=== PATIENT | female | born 1960 | race Caucasian/White ===

== ENCOUNTER 2016-07-16 17:40 | Emergency (ER) | payer OTHER ==
[2016-07-16] MEDS ORDERED: HYDROmorphone HCL 1 MG/ML SYR ONE ×2 (17:57→19:55)
[2016-07-16] MEDS ORDERED: ONDANSETRON HCL 4 MG/2 ML VIAL ONE (18:41)
[2016-07-16] MEDS ORDERED: FENTANYL 250 MCG/5 ML VIAL ONE (18:42)
--- NOTE | 2016-07-16 19:16 | CT REPORT ---
HISTORY: Injury, fall, fracture COMPARISON: Radiographs from same day TECHNIQUE: CT of the left ankle has been performed without contrast. Axial images obtained with two dimensional reformats performed. 3D volume rendering performed by technologist on a separate work station. This examination was performed using automated exposure control, adjustment of mA or kV according to patient size, and/or use of iterative reconstruction technique. FINDINGS: Mildly comminuted fractures of the posterior malleolus, with predominant coronal fracture plane. Up t o 3 mm dorsal displacement of the dominant fracture fragment. Mild impaction of the dorsal articular surface, approximately 2 mm. Oblique distal fibular fracture, mildly displaced. Ankle mortise is intact. No dislocation. Circumferential soft tissue swelling. IMPRESSION: 1. Mildly comminuted and displaced posterior malleolar fracture. 2. Oblique distal fibular fracture. Final Electronic Signature: This report was electronically signed by Jorge Parks MD on 07/16/2016 7:14 PM. lyndon /
[2016-07-16] MEDS ORDERED: HYDROcodone/APAP PREPAC 5/325 1 TAB TABLET PO ONE (19:43)
[2016-07-16] MEDS ORDERED: ONDANSETRON ODT PREPAC 4 MG TAB.RAPDIS PO ONE (19:43)
[2016-07-16] MEDS ORDERED: ONDANSETRON ODT 4 MG TAB.RAPDIS ONE (20:14)
--- NOTE | 2016-07-16 21:24 | ER NURSING DOCUMENTATION ---
Nurse's Notes [facility] [place], [place] Name:Melanie Alvarado Age:55 yrs Sex:Female :1960 Arrival Date:07/16/2016 Time:17:40 Bed6 Private MD:Diana Guy Diagnosis:Ankle Fracture Presentation: 07/16 07:40 Transition of care: Home. Care prior to arrival: Splint applied. 17:49 Presenting complaint: Patient states: pt stepped on a steep rock and felt something st break in her left leg. pt has been unable to bear weight. Care prior to arrival: Saline lock initiated. Medication(s) given: Fentanyl 200 Mcg of fentinal and 8mg of zofran. Mechanism of Injury: Fall from standing position. Trauma event details: Injury occurred July 16, 2016. 17:49 Acuity: JUSTIN 2 st 17:49 Method Of Arrival: EMS: 410 st Historical: - Allergies: PENICILLINS; Lisinopril; - Home Meds: 1. HCTZ 1/2 2. 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 - Ebola Screening: : Patient denies exposure to infectious person. Patient denies travel to an Ebola-affected area in the 21 days before illness onset. . - Immunization history: Pneumococcal vaccine status is unknown. - Social history: Smoking status: Patient states was never smoker of tobacco. Patient uses alcohol but reports only rare drinking. Patient/guardian denies using marijuana. Screenin:02 Abuse screen: Denies threats or abuse. Denies injuries from another. pt feels safe at home. Nutritional screening: No deficits noted. Tuberculosis screening: No symptoms or risk factors identified. 18:04 Infectious Disease Risk None. Primary Survey: 17:40 Airway: patent. Breathing/Chest: Respiratory pattern: regular, Respiratory effort: st spontaneous, unlabored. Circulation: Pulses: palpable right radial artery and left radial artery. Assessment: 07:40 General: Appears uncomfortable, Behavior is cooperative. General: splint on left leg by EMS. Pain: Complains of pain in lateral aspect of left calf and left lateral ankle Pain currently is 9 out of 10 on a pain scale. Aggravated by any movement. Neuro: No deficits noted. Cardiovascular: No deficits noted. Respiratory: No deficits noted. GI: No deficits noted. Musculoskeletal: Circulation, motion, and sensation intact Reports pain in lateral aspect of left calf and left lateral ankle. 18:23 General: pt states that the foot feels very unstable and that she heal feels like it is st not attached. . Musculoskeletal: Swelling present in left lateral ankle. Injury Description: Bruise sustained to left medial ankle. 20:11 Reassessment: while attempting to discharge pt, she became lightheaded and nauseous. MD naranjo aware and ordered meds. Pt returned to room and placed back into bed with bp cuff and o2 sat on, placed on o2 2l nc. will continue to monitor.. Vital Signs: 07:40 BP 140 / 87; Pulse 92; Resp 18; Temp 97.4; Pulse Ox 100% on R/A; Pain 9/10; st 18:22 Pain 7/10; st 19:18 BP 127 / 91; Pulse 86; Resp 12; Pulse Ox 99% on 2 lpm NC; lb 19:51 BP 121 / 86; Pulse 82; Resp 14; Pulse Ox 100% on NC; lb 21:22 BP 112 / 75; Pulse 68; Resp 12; Pulse Ox 95% on R/A; Pain 4/10; lb Trauma Score (Adult): 07:40 Eye Response: spontaneous(1); Verbal Response: oriented(1); Motor Response: obeys st commands(2); Systolic BP: > 89 mm Hg(4); Respiratory Rate: 10 to 29 per min(4); Rapelje Score: 15; Trauma Score: 12 ED Course: 17:41 Patient arrived in ED. lm3 17:41 Diana Guy DO is Private Physician. lm3 17:45 Jose Rausch MD is Attending Physician. tl1 17:49 Quiana Renee RN is Primary Nurse. st 17:[address] 18:02 Valuables Remains with patient Patient has correct armband on for positive st identification. Bed in low position. 18:[address] pm1 18:[address] Patient [address] back [address]. pm1 18:54 Oxygen Oxygen administration via nasal cannula @ 2L/min. st 19:20 Posterior lower leg splint applied on Sugar tong splint applied on. lb 19:29 Jorge Richter MD is Referral Physician. tl1 Administered Medications: 17:51 Drug: Dilaudid 0.5 mg; Route: IVP; Site: right antecubital; st 18:22 Follow up: Response: Pain is decreased st 18:22 Drug: Dilaudid 0.5 mg; Route: IVP; Site: right antecubital; st 18:53 Follow up: Response: Pain is decreased st 18:53 Drug: Phenergan 12.5 mg; Route: IVP; Site: right antecubital; st 19:50 Follow up: Response: Nausea is decreased lb 19:49 Drug: Dilaudid 0.5 mg; Route: IVP; Site: right antecubital; lb 21:24 Follow up: Response: Pain is decreased lb 20:07 CANCELLED (Physician Discretion): Tetanus-Diphtheria Toxoid Adult 0.5 ml IM once; Use lb Tetanus Immune Globulin (TIG) for patients whose immunization is incomp 20:08 Drug: Ondansetron 4 mg; Route: PO; lb 21:23 Follow up: Response: Nausea is decreased lb Outcome: 19:30 Discharge ordered by . tl1 21:22 Discharged to home via wheelchair, with crutches. lb 21:22 Condition: stable 21:22 Discharge Assessment: Patient awake, alert and oriented x 3. No cognitive and/or functional deficits noted. Patient verbalized understanding of disposition instructions. 21:22 Instructed on discharge instructions, follow up and referral plans. no drinking with medication, no driving heavy equipment, [facility] 21:22 IV D/Theo 21:23 Patient left the ED. lb Signatures: Quiana Renee RN RN st McBride, Philisha Jose Rivas MD MD tl1 Jessica Santos Imelda Wellington 3
--- NOTE | 2016-07-16 21:24 | ER PHYSICIAN DOCUMENTATION ---
Physician Documentation [facility] Name:Melanie Alvarado Age:55 yrs Sex:Female :1960 Arrival Date:07/16/2016 Time:17:40 Bed6 Private MD:Diana Guy ED, Tom Disposition: 07/18 11:29 Chart complete. tl1 Disposition: 07/16/16 19:30 Discharged to Home/Self Care. Impression: Ankle Fracture. - Condition is Good. - Discharge Instructions: ANKLE FRACTURE (Distal Fibula), closed. - Prescriptions for [place] 7.5- 325 mg Oral Tablet - take 1 tablet by ORAL route every 6 hours As needed; 20 tablet. Zofran 4 mg Oral Tablet - take 1-2 tablet by ORAL route every 4-6 hours As needed; 10 tablet. - Medical Reconciliation form form. - Follow up: Jorge Richter MD; When: 2 - 3 days; Reason: Recheck today's complaints, Continuance of care. - Problem is new. - Symptoms have improved. HPI: 07/16 17:41 This 55 yrs old Female presents to ER via EMS with complaints of Fall Injury, tl1 Leg Injury. 17:41 Details of fall: The patient fell. She was standing on a rock in her yard, next door to [facility] the hospital, on a fairly steep slope, with her left ankle inverted. Her ankle suddenly gave way and she had severe pain, causing her to fall and roll. She was unable to walk and an ambulance was summoned. She was splinted at the scene and transported. She has no other injury.. Historical: - Allergies: PENICILLINS; Lisinopril; - Home Meds: 1. HCTZ 1/2 2. 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 - Ebola Screening: : Patient denies exposure to infectious person. Patient denies travel to an Ebola-affected area in the 21 days before illness onset. . - Immunization history: Pneumococcal vaccine status is unknown. - Social history: Smoking status: Patient states was never smoker of tobacco. Patient uses alcohol but reports only rare drinking. Patient/guardian denies using marijuana. ROS: 18:32 MS/extremity: Positive for injury or acute deformity, of the left lateral ankle, left tl1 medial ankle and anterior aspect of left ankle. 18:32 All other systems are negative. Exam: 18:33 Constitutional: The patient appears alert, awake, non-toxic, well developed, well tl1 hydrated, well groomed, well nourished, in obvious distress, moderately distressed, in obvious pain, uncomfortable. 18:33 Head/face: Exam is negative for acute changes. 18:33 Cardiovascular: Rate: normal. 18:33 Respiratory: Respirations: normal. 18:33 Musculoskeletal/extremity: Extremities: grossly normal except: noted in the left lateral ankle, left medial ankle and anterior aspect of left ankle: decreased ROM, deformity, ecchymosis, swelling, tenderness. 18:33 Skin: Exam negative for acute changes. 18:33 Neuro: grossly normal.. Vital Signs: 07:40 BP 140 / 87; Pulse 92; Resp 18; Temp 97.4; Pulse Ox 100% on R/A; Pain 9/10; st 18:22 Pain 7/10; st 19:18 BP 127 / 91; Pulse 86; Resp 12; Pulse Ox 99% on 2 lpm NC; lb 19:51 BP 121 / 86; Pulse 82; Resp 14; Pulse Ox 100% on NC; lb 21:22 BP 112 / 75; Pulse 68; Resp 12; Pulse Ox 95% on R/A; Pain 4/10; lb Trauma Score (Adult): 07:40 Eye Response: spontaneous(1); Verbal Response: oriented(1); Motor Response: obeys st commands(2); Systolic BP: > 89 mm Hg(4); Respiratory Rate: 10 to 29 per min(4); Speculator Score: 15; Trauma Score: 12 MDM: 17:45 Patient medically screened. tl1 18:35 Differential diagnosis: fracture, sprain. Data reviewed: vital signs, nurses notes, tl1 radiologic studies, CT scan, plain films, and as a result, I will discharge patient. Test interpretation: by ED physician or midlevel provider: plain radiologic studies. Counseling: I had a detailed discussion with the patient and/or guardian regarding: the historical points, exam findings, and any diagnostic results supporting the discharge/admit diagnosis, radiology results, the need for outpatient follow up, to return to the emergency department if symptoms worsen or persist or if there are any questions or concerns that arise at home. Response to treatment: the patient's symptoms have mildly improved after treatment, and as a result, I will discharge patient. Physician consultation: Jorge Richter MD was called at 18:40, was contacted at 18:40, regarding patient's condition, outpatient follow-up, in 2-3 days, and will see patient in office, in 2-3 days. ED course: SPLINTED.. 07/16 19:17 Order name: CAT SCAN; LOWER EXTR W/O [id number]; Complete Time: 11:31 EDMS 07/18 11:31 Interpretation: fracture. tl1 07/16 18:53 Order name: Oxygen; Complete Time: 18:53 st Dispensed Medications: 17:51 Drug: Dilaudid 0.5 mg; Route: IVP; Site: right antecubital; st 18:22 Follow up: Response: Pain is decreased st 18:22 Drug: Dilaudid 0.5 mg; Route: IVP; Site: right antecubital; st 18:53 Follow up: Response: Pain is decreased st 18:53 Drug: Phenergan 12.5 mg; Route: IVP; Site: right antecubital; st 19:50 Follow up: Response: Nausea is decreased lb 19:49 Drug: Dilaudid 0.5 mg; Route: IVP; Site: right antecubital; lb 21:24 Follow up: Response: Pain is decreased lb 20:07 CANCELLED (Physician Discretion): Tetanus-Diphtheria Toxoid Adult 0.5 ml IM once; Use lb Tetanus Immune Globulin (TIG) for patients whose immunization is incomp 20:08 Drug: Ondansetron 4 mg; Route: PO; lb 21:23 Follow up: Response: Nausea is decreased lb Signatures: Quiana Renee RN RN Jose, Jose Natarajan MD MD tl1 Jessica Santos lb
[2016-07-17] MEDS ORDERED: HYDROmorphone HCL 1 MG/ML SYR ONE (20:52)
[2016-07-17] MEDS ORDERED: ONDANSETRON ODT 4 MG TAB.RAPDIS ONE (20:52)
--- NOTE | 2016-07-19 15:38 | RADIOLOGY REPORT ---
Views of the left lower leg and left ankle demonstrate casting material in place which limits the examination. Oblique fracture of the distal fibula is noted with 2 to 3 mm of posterolateral displacement. Associated vertical fracture of the posterior aspect of the tibia is noted. The medial malleolus, mortise and talar dome appear intact. The visualized joints appear unremarkable. IMPRESSION: Fractures involving the distal fibula and posterior aspect of the distal tibia as described. Please see CT scan report of the same date. KAMARD
== END 2016-07-16 21:23 | disposition home or self-care (01) ==
LOC: ER 17:40
DX: S82.845A Nondisplaced bimalleolar fracture of left lower leg, initial encounter for closed fracture (principal); W01.0XXA Fall on same level from slipping, tripping and stumbling without subsequent striking against object, initial encounter; Y92.017 Garden or yard in single-family (private) house as the place of occurrence of the external cause; Y93.H2 Activity, gardening and landscaping; I10 Essential (primary) hypertension; Z79.899 Other long term (current) drug therapy
CPT/HCPCS: 29515; 73700; 96374; 96375; 96376; 99285; J1170; J2405; J2550

== ENCOUNTER 2016-07-17 20:29 | Emergency (ER) | payer OTHER ==
--- NOTE | 2016-07-17 22:05 | ER NURSING DOCUMENTATION ---
Nurse's Notes [facility] Name:Melanie Alvarado Age:55 yrs Sex:Female :1960 Arrival Date:07/17/2016 Time:20:29 Bed5 Private MD:Diana Guy Diagnosis:Bimalleolar Ankle Fracture Presentation: 07/17 20:30 Acuity: JUSTIN 3 rs 20:30 Presenting complaint: Patient states: Fx of left tib/fib and talus yesterday evening. rs Seen in this ER, states reduction was not complete due to her level of pain. She was given hydrocodone 7.5 mg po for pain, and she is taking q4h and it is not controlling her pain. She describes the pain across the top of her foot as burning "on fire". Has been keeping it somewhat elevated but not to the level of her heart. Transition of care: Home. 20:30 Method Of Arrival: Private Vehicle rs Triage Assessment: 20:40 General: Appears distressed, uncomfortable, well developed, well nourished, well rs groomed, Behavior is cooperative, pleasant. Pain: Complains of pain in left ankle and foot. Neuro: No deficits noted. Level of Consciousness is awake, alert, Oriented to person, place, time, event. Cardiovascular: No deficits noted. Capillary refill < 3 seconds Pulses are 3+ in left radial artery Denies fatigue, lightheadedness, palpitations, Chest pain is denied. Respiratory: No deficits noted. Airway is patent Respiratory effort is even, unlabored, Respiratory pattern is regular, symmetrical, Breath sounds are clear bilaterally. Denies shortness of breath at rest. GI: No deficits noted. Derm: No deficits noted. Skin is pink, warm & dry. Musculoskeletal: Circulation, motion, and sensation intact Capillary refill < 3 seconds Denies numbness in, left toes. Historical: - Allergies: PENICILLINS; Lisinopril; - Home Meds: 1. HCTZ 1/2 2. Synthroid 25 mcg oral tab 0.5 tab once daily - PMHx: HYPERTENSION; HYPOTHYROIDISM; Ankle Fracture (July 16, 2016); - PSHx: c section x2; SHOULDER SURGERY; - Tetanus: unknown. - Ebola Screening: : Patient negative for fever greater than or equal to 101.5 degrees Fahrenheit, and additional compatible Ebola Virus Disease symptoms. Patient denies exposure to infectious person. Patient denies travel to an Ebola-affected area in the 21 days before illness onset. No symptoms or risks identified at this time. . - Immunization history: Unable to Obtain. - Social history: Smoking status: Patient states was never smoker of tobacco. Screenin:45 Infectious Disease Risk None. Abuse screen: Denies threats or abuse. Nutritional rs screening: No deficits noted. Assessment: 21:40 Reassessment: Patient states feeling better. Patient states symptoms have improved. rs Patient appears in no apparent distress at this time. Vital Signs: 20:29 BP 133 / 84 (auto/); Pulse 87; Resp 20; Temp 98.7; Pulse Ox 91% on R/A; Pain 8/10; rs 20:32 Pulse Ox 90% ; rs 20:55 BP 121 / 87 (auto/); rs 20:57 Pulse Ox 98% ; rs 21:03 BP 115 / 84 (auto/); rs 21:07 Pulse Ox 98% ; rs ED Course: 20:30 Patient arrived in ED. em2 20:30 Diana Guy DO is Private Physician. em2 20:30 Notified ED Physician of patient's arrival and chief complaint. Dr. Poole notified. Arm rs band placed on Bed in low position Call Light in Reach HOB Elevated Side rails up x1. Family accompanied patient. Affected limb iced. Affected limb elevated. 20:41 Capo Poole MD is Attending Physician. sc 21:04 Lian Ellis, ANJU is Primary Nurse. rs 21:15 Jorge Richter MD is Referral Physician. sc 21:25 Triage completed. rs 21:54 Door closed. Noise minimized. Verbal reassurance given. rs 22:00 Assist Provider Assist provider with fracture care. rs Administered Medications: 20:45 Drug: Zofran 4 mg; Route: PO; rs 21:15 Follow up: Response: Nausea is decreased rs 20:48 Drug: Dilaudid 2 mg; Route: IM; Site: left gluteus; rs 21:20 Follow up: Response: Pain is decreased rs Outcome: 21:16 Discharge ordered by . sc 21:45 Discharged to home via wheelchair, with family. rs 21:45 Condition: improved 21:45 Discharge instructions given to patient, family, Instructed on discharge instructions, follow up and referral plans. medication usage, Demonstrated understanding of instructions, medications. 22:04 Patient left the ED. rs 07/18 18:06 Discharge F/U Call: Spoke with: patient. other: Name: pt states that her pain is st manageable now. pt has been having troubles with nausea with the pain meds but every things is feeling manageable right now. Surgery is scheduled for Monday. Signatures: Quiana Renee RN RN st Stalker, Rachael, RN RN rs Chew, Scott, MD MD nj Abdiel-reg, Sara-delmi em2
--- NOTE | 2016-07-17 22:05 | ER PHYSICIAN DOCUMENTATION ---
Physician Documentation [facility] Name:Melanie Alvarado Age:55 yrs Sex:Female :1960 Arrival Date:07/17/2016 Time:20:29 Bed5 Private MD:Diana Guy ED, Scott Disposition: 07/17/16 21:16 Discharged to Home/Self Care. Impression: Bimalleolar Ankle Fracture. - Condition is Good. - Discharge Instructions: FRACTURE, Ankle (General). - Medical Reconciliation form form. - Follow up: Jorge Richter MD; When: Tomorrow. - Problem is new. - Symptoms have improved. HPI: 07/17 21:11 This 55 yrs old Female presents to ER with complaints of Leg Pain - LEFT. sc 21:11 Patient presents to ED for recheck of: fracture with splint yesterday, not keeping sc elevated well, ongoing pain hard to sleep. The affected area is on the left leg. Previous treatment: the care was rendered at [facility]. Historical: - Allergies: PENICILLINS; Lisinopril; - Home Meds: 1. HCTZ 1/2 2. Synthroid 25 mcg oral tab 0.5 tab once daily - PMHx: HYPERTENSION; HYPOTHYROIDISM; Ankle Fracture (July 16, 2016); - PSHx: c section x2; SHOULDER SURGERY; - Tetanus: unknown. - Ebola Screening: : Patient negative for fever greater than or equal to 101.5 degrees Fahrenheit, and additional compatible Ebola Virus Disease symptoms. Patient denies exposure to infectious person. Patient denies travel to an Ebola-affected area in the 21 days before illness onset. No symptoms or risks identified at this time. . - Immunization history: Unable to Obtain. - Social history: Smoking status: Patient states was never smoker of tobacco. ROS: 21:12 Constitutional: Negative for fever, chills, and weight loss. sc Eyes: Negative for injury, pain, redness, and discharge. ENT: Negative for injury, pain, and discharge. Neck: Negative for injury, pain, and swelling. Back: Negative for injury and pain. 21:12 Neuro: Negative for headache, weakness, numbness, tingling, and seizure. sc 21:12 MS/extremity: Positive for pain. 21:12 Skin: Negative for lesions. Exam: Constitutional: This is a well developed, well nourished patient who is awake, alert, and in no acute distress. Head/Face: Normocephalic, atraumatic. Eyes: Pupils equal round and reactive to light, extra-ocular motions intact. Lids and lashes normal. Conjunctiva and sclera are non-icteric and not injected. Cornea within normal limits. Periorbital areas with no swelling, redness, or edema. Back: No spinal tenderness. No costovertebral tenderness. Full range of motion. 21:12 Skin: Warm, dry with normal turgor. Normal color with no rashes, no lesions, and no sc evidence of cellulitis. 21:12 Musculoskeletal/extremity: Extremities: grossly normal except: ecchymosis, pain, ROM: intact in all extremities, Circulation is intact in all extremities. Sensation intact. no signs compartment syndrome 21:12 Skin: Exam negative for acute changes. Vital Signs: 20:29 BP 133 / 84 (auto/); Pulse 87; Resp 20; Temp 98.7; Pulse Ox 91% on R/A; Pain 8/10; rs 20:32 Pulse Ox 90% ; rs 20:55 BP 121 / 87 (auto/); rs 20:57 Pulse Ox 98% ; rs 21:03 BP 115 / 84 (auto/); rs 21:07 Pulse Ox 98% ; rs MDM: 20:41 Patient medically screened. sc 21:14 Differential diagnosis: swelling, adjusted splint and andres wraps, discussed pain mngmnt sc and follow up with Rober tomorrow. Data reviewed: vital signs, nurses notes, old medical records, radiologic studies, and as a result, I will discharge patient. Physician consultation: Jorge Richter MD was called at 21:15, was contacted at 21:15, regarding patient's condition, and will see patient tomorrow. Dispensed Medications: 20:45 Drug: Zofran 4 mg; Route: PO; rs 21:15 Follow up: Response: Nausea is decreased rs 20:48 Drug: Dilaudid 2 mg; Route: IM; Site: left gluteus; rs 21:20 Follow up: Response: Pain is decreased rs Signatures: Lian Ellis RN RN rs Capo Poole MD MD sd
== END 2016-07-17 22:05 | disposition home or self-care (01) ==
LOC: ER 20:29
DX: S82.845D Nondisplaced bimalleolar fracture of left lower leg, subsequent encounter for closed fracture with routine healing (principal); M79.662 Pain in left lower leg
CPT/HCPCS: 96372; 99284

== ENCOUNTER 2016-07-20 11:54 | Observation (INO) | payer OTHER ==
[~2016-07-20 11:54] MED LIST: ceFAZolin 1 GM in NORMAL SALINE MINI-BAG+ 100 ML IV ONE
[2016-07-20] MEDS ORDERED: SCOPOLAMINE 1.5 MG PATCH TD ONE ×2 (12:01→14:28)
[2016-07-20] MEDS ORDERED: ceFAZolin 1 GM in NORMAL SALINE MINI-BAG+ 100 ML IV ONE (12:01)
[2016-07-20] MEDS ORDERED: LIDOCAINE HCL 1% 20 ML VIAL SUBCUT SCH ×2 (12:01→14:28)
[2016-07-20] MEDS ORDERED: MIDAZOLAM HCL 2 MG/2 ML SYR IV ONE (12:01)
[2016-07-20] MEDS ORDERED: ACETAMINOPHEN 1,000 MG/100 ML VIAL IV SCH ×2 (12:01→14:28)
[2016-07-20] MEDS ORDERED: LACTATED RINGERS 1,000 ML IV SCH ×3 (12:01→15:00)
[2016-07-20] MEDS ORDERED: FAMOTIDINE IN SALINE, ISO-OSM 20 MG/50 ML PIGGYBACK IV SCH ×2 (12:01→14:28)
[2016-07-20] MEDS ORDERED: ceFAZolin 1 GM/10 ML VIAL ONE (12:28)
[2016-07-20] MEDS ORDERED: MIDAZOLAM HCL 2 MG/2 ML VIAL ONE (12:28)
[2016-07-20] MEDS ORDERED: BUPIVACAINE/EPI 0.25% 1 VIAL VIAL ONE ×2 (12:54→12:55)
[2016-07-20] MEDS ORDERED: DIPHENHYDRAMINE 50 MG/ML VIAL ONE (13:08)
[2016-07-20] MEDS ORDERED: ONDANSETRON HCL 4 MG/2 ML VIAL ONE (13:08)
[2016-07-20] MEDS ORDERED: LIDOCAINE HCL 2% 20 ML VIAL ONE (13:09)
[2016-07-20] MEDS ORDERED: FENTANYL 100 MCG/2 ML VIAL ONE ×2 (13:09→13:48)
[2016-07-20] MEDS ORDERED: DEXAMETHASONE 4 MG/ML VIAL ONE (13:09)
[2016-07-20] MEDS ORDERED: ROCURONIUM BROMIDE 50 MG/5 ML VIAL IV ONE (13:09)
[2016-07-20] MEDS ORDERED: SUGAMMADEX SODIUM 200 MG/2 ML VIAL IV ONE (13:09)
[2016-07-20] MEDS ORDERED: ROPIVACAINE HCL 0.5% 30 ML ONE (13:40)
[2016-07-20] MEDS ORDERED: HYDROmorphone HCL 1 MG/ML SYR IV PRN (14:28)
[2016-07-20] MEDS ORDERED: ONDANSETRON HCL 4 MG/2 ML VIAL IV PRN ×2 (14:28→16:09)
[2016-07-20] MEDS ORDERED: FENTANYL 100 MCG/2 ML VIAL IV PRN (14:28)
[2016-07-20] MEDS ORDERED: hydrALAZINE HCL 20 MG/ML VIAL ONE (14:46)
--- NOTE | 2016-07-20 15:43 | RADIOLOGY REPORT ---
Four limited views of the left ankle from the C-Arm in the operating room are compared with prior films dated 07/16/2016. There has been interval open reduction and internal fixation of the distal fibula fracture and posterior tibia fracture. No other change is identified. IMPRESSION: Interval open reduction and internal fixation of the fibula and tibia fractures. [facility]
[2016-07-20] MEDS ORDERED: HYDROcodone/APAP 5/325 MG 1 TAB TABLET PO PRN (16:09)
[2016-07-20] MEDS ORDERED: DEXTROSE 5% LACTATED RINGERS 1,000 ML IV SCH (16:09)
[2016-07-20] MEDS ORDERED: HYDROmorphone HCL 1 MG/ML SYR ONE (16:14)
--- NOTE | 2016-07-20 16:52 | OPERATIVE REPORT ---
DATE OF SURGERY: 07/20/16 SURGEON: Jorge Richter MD PREOPERATIVE DIAGNOSIS: Fracture of the left distal fibula with displaced fracture of the posterior malleolus. POSTOPERATIVE DIAGNOSIS: Fracture of the left distal fibula with displaced fracture of the posterior malleolus. PROCEDURE PERFORMED: Open reduction, internal fixation of the distal fibula and posterior malleolus. INDICATIONS FOR PROCEDURE: Patient is a 55-year-old female who slipped off of a rock, sustaining a twist injury to her left ankle, after which she was noted to have a fracture pattern as noted above. Due to the displacement of the posterior malleolus as well as the unstable nature of the fracture, she was taken to the operating room for open reduction, internal fixation. SUMMARY: After informed consent was obtained, the patient was taken to the operating room where she was placed in the prone position under general anesthesia. After adequate anesthesia was achieved, the left ankle and lower extremity were prepped and draped in the usual sterile fashion, the wound was gently exsanguinated, and a tourniquet was inflated about the proximal thigh to 275 mmHg. A longitudinal incision was then performed between the posterior malleolus and the Achilles tendon. the underlying soft tissue was gently but sharply dissected to reveal the retinaculum. The retinaculum was incised, and then the peroneal tendon sheath was incised. The peroneal tendons were retracted laterally, exposing the underlying flexor hallucis longus. The flexor hallucis longus was incised off of the posterior medial aspect of the distal fibula, and then gently retracted medially. This allowed exposure of the posterior malleolus. We went underneath the peroneal tendons to also expose the distal fibular fracture. The wound was irrigated with copious amounts of sterile saline at that point, and the posterior malleolus fracture was gently opened in order to remove and impinged fragment that had been blocking reduction. Inferior elevator was used to gently open the fracture site and dislodge a fragment. We also opened the joint at the distal aspect of the posterior malleolus in order to inspect the joint. The wound was then irrigated again, and then a reduction maneuver was performed on the distal fibula. The distal fibula was then secured using 1/3 tubular plate posteriorly as an anti glide plate with 3 cortical screws proximally and 2 cancellous screws distally. Once the fibula was secured, the posterior malleolus fracture stayed in position quite well. C-arm fluoroscopy was used to verify proper position of the fibula and alignment of the posterior malleolus, after which two 4-mm cannulated screws were used to secure the posterior malleolar fragments. Again C-arm fluoroscopy was used to confirm proper alignment of both fractures. We did have to change out a couple of screws to change lengths in the fibula. We irrigated the wound one more time and an attempt was made to close the retinaculum but it was too tight over the tendon, and we did not want to cause strangulation of the tendons. Therefore, the fascia was simply reapproximated, and then the subcutaneous tissue was closed using 2-0 Vicryl. The skin was then closed using skin rodolfo. A sterile gauze dressing was then applied, and then the patient was placed into a well padded AO splint. She tolerated the procedure well and was taken to the recovery room in stable condition. ESTIMATED BLOOD LOSS: Minimal. FLUIDS: Lactated ringers 1400 mL. TOURNIQUET TIME: 93 minutes. MTDD
[2016-07-20] MEDS ORDERED: ALBUTEROL INHALATION SCH (17:00)
[2016-07-20] MEDS: ALBUTEROL 0.083% 2.5 MG/3 ML VIAL.NEB INHALATION SCH ×2 (17:30→22:23)
[2016-07-20] MEDS: ceFAZolin 1 GM in NORMAL SALINE MINI-BAG+ 100 ML IV SCH (18:27)
[2016-07-20] MEDS ORDERED: FLOVENT 110 MCG INHALATION SCH (21:00)
[2016-07-20] MEDS ORDERED: SENNOSIDES/DOCUSATE SODIUM 1 TAB TABLET PO SCH (21:00)
[2016-07-20] MEDS: CELECOXIB 100 MG CAPSULE PO SCH (22:02)
[2016-07-20] MEDS: FLUTICASONE HFA 44 MCG 120 INH INH INHALATION SCH (22:03)
[2016-07-20] MEDS ORDERED: SENNOSIDES/DOCUSATE SODIUM 1 TAB TABLET PO ONE (22:12)
[2016-07-20] MEDS ORDERED: FLUTICASONE HFA 44 MCG 120 INH INH INHALATION ONE (22:14)
[2016-07-21] MEDS: ceFAZolin 1 GM in NORMAL SALINE MINI-BAG+ 100 ML IV SCH ×2 (02:55→09:38)
[2016-07-21 03:07] VITALS: RESP 16
[2016-07-21] MEDS ORDERED: MAGNESIUM HYDROXIDE 30 ML UDC PO ONE (06:00)
[2016-07-21] MEDS ORDERED: LEVOTHYROXINE 50 MCG TABLET PO SCH (06:30)
[2016-07-21 07:07] VITALS: BP 102/58; PULSE 80; TEMP 98.3; O2SAT 91
[2016-07-21] MEDS ORDERED: INHALER, ASSIST DEVICES 1 PKT EACH ONE (08:37)
[2016-07-21] MEDS: ALBUTEROL 0.083% 2.5 MG/3 ML VIAL.NEB INHALATION SCH (08:42)
[2016-07-21] MEDS: FLUTICASONE HFA 44 MCG 120 INH INH INHALATION SCH (08:42)
[2016-07-21] MEDS ORDERED: SYNTHROID 50 MCG PO SCH (09:00)
[2016-07-21] MEDS ORDERED: HYDROCHLOROTHIAZIDE 25 MG TABLET PO SCH (09:00)
[2016-07-21] MEDS ORDERED: NON-FORMULARY MEDICATION (Hydrochlorothiazide 25 MG) PO SCH (09:00)
[2016-07-21] MEDS: CELECOXIB 100 MG CAPSULE PO SCH (09:52)
--- NOTE | 2016-07-21 10:09 | PROGRESS NOTE: Orthopedics ---
Orthopedic PN Subjective - Subjective Principal Diagnosis: Post op ORIF left ankle Post-op Day: 1 Interval history: The patient feels well today, with no pain, as her nerve block is still working. Ortho PN Objective Exam - Latest Vital Signs and I&O Latest Vital Signs/I&O: Vital Signs Temp 36.8 C 07/21/16 07:00 Pulse 80 07/21/16 07:00 Resp 16 07/21/16 07:00 BP 102/58 07/21/16 07:00 Pulse Ox 91 07/21/16 07:00 Intake & Output 07/20/16 07/21/16 07/21/16 17:59 05:59 17:59 Intake Total 1822 Output Total 880 Balance 942 Weight 65.771 kg Intake: IV 1202 Right Wrist 1202 Oral 620 Output: Urine 880 Other: Urine Appearance Clear Urine Color Straw Voiding Method Toilet # Voids 2 - Post-Operative Exam Dressing Status: dry & intact Drainage Amount: none Distal Pulses: +2 Active Motor: intact Assessment and Plan-Ortho - Date of Encounter Date of Encounter: 07/21/16 (1) Status post ORIF of fracture of ankle Assessment and plan: Assessment: The patient is doing well postop ORIF of her left distal fibula and lateral malleolus. Plan: The patient will be discharged to home. She should continue to be strictly nonweightbearing on the left lower extremity. Quality Questions - VTE Prophylaxis Assessment VTE Present on Admission?: No Patient at risk for venous thromboembolism?: Yes VTE Risk Level: Low Risk Pharmaceutical VTE prophylaxis contraindication reason: N/A- VTE prophylaxsis ordered Mechanical VTE prophylaxis contraindication reason: not indicated
--- NOTE | 2016-07-28 09:31 | PREOPERATIVE H&P ---
History of Present Illness (Jorge Richter MD; 07/18/2016 12:41 PM) Chief complaint: Broken left ankle. History of present illness: The patient is a 55-year-old female who was in her yard standing on a rock yesterday when she slipped and sustained a twist injury of her left ankle evidently with the foot in a significantly plantarflexed position. She felt a pop in the ankle and had immediate pain and inability to an doing. Subsequent radiographs in the emergency department reveal a fracture through her distal fibula as well as a fracture of her posterior malleolus. She was placed in an AO splint that time, and has now come in for further evaluation and management of her injury. Allergies (Kya Song RN; 07/18/2016 11:54 AM) Lisinopril *ANTIHYPERTENSIVES*03/04/2015 02:46 PM Cough. Adhesive Tape03/04/2015 Penicillins (Amoxicillin, Augmentin, Unasyn...)03/04/2015 unknown as a child Family History (Kya Song RN; 07/18/2016 11:54 AM) Father HTN Mother HTN ,Glaucoma,Has 1 kidney Had blood clot in kidney non functioning on Coumadin Sister Breast cancer dx 45 Social History (Kya Song RN; 07/18/2016 11:54 AM) Tobacco use Never smoker. Alcohol use Drinks Rarely. Medication History (Kya Song RN; 07/18/2016 11:54 AM) HydroCHLOROthiazide (25MG Tablet, 1 (one) Oral daily, Taken starting 05/19/2016 ) Active. Flovent HFA (110MCG/ACT Aerosol, 1 (one) Inhalation 2 puff bid prn, Taken starting 06/07/2016) Active. Synthroid (50MCG Tablet, 1 Oral daily, Taken starting 02/22/2016) Active. Ventolin HFA (108 (90 Base)MCG/ACT Aerosol Soln, 1 (one) Inhalation 2 puff four times a day PRN, Taken starting 10/16/2014) Active. Nebulizer (1 (one) Device as directed, Taken starting 10/16/2014) Active. Nebulizer (Taken starting 10/16/2014) Active. Phentermine HCl (30MG Capsule, 1 (one) Oral 1 po daily (1-2h after breaskfast) , Taken starting 07/12/2016) Discontinued. Cyclobenzaprine HCl (5MG Tablet, 1 (one) Tablet Oral 1 or 2 three times daily as needed, Taken starting 04/27/2016) Discontinued. Calcium (Oral) Specific dose unknown - Active. [place] 3 (Oral) Specific dose unknown - Discontinued. Vitamin D3 (Oral) Specific dose unknown - Active. (1200) Zofran (4MG Tablet, 1 tab Oral as needed as directed) Active. Hydrocodone-Acetaminophen (5-325MG Tablet, 1-2 tbs Oral q 4-6 hrs prn) Active. Medications Reconciled Vitals (Kya Song RN; 07/18/2016 11:51 AM) 07/18/2016 11:48 AM Weight: 154 lb Height: 62.25in Body Surface Area: 1.72 m Body Mass Index: 27.94 kg/m Temp.: 97.1F Pulse: 76 (Regular) Resp.: 16 (Unlabored) BP: 116/84 (Sitting, Left Arm, Standard) Physical Exam (Jorge Richter MD; 07/18/2016 12:43 PM) General Well appearing female in mild distress secondary to pain and nausea, but alert and oriented. Musculoskeletal Physical examination of the left lower extremity reveals that she is in an AO splint. The splint is secure and intact. She does have a 2+ dorsalis pedis pulse with sensation intact throughout to light touch. She also moves her toes well. X-ray evaluation: Plain radiographs of the ankle that were obtained in the emergency department reveal a subtle long oblique fracture through the distal fibula, and what appears to be a nondisplaced vertical fracture through the posterior malleolus. However, the CT scan reveals that there is separation of the lateral portion of the posterior malleolus fracture with a small rotate osteochondral fragment that appears to be the 2 fragments. There is also a sagittal split within the posterior malleolus fracture. Also on the sagittal reconstructions there are 2 images where there is some elevation of the posterior fragment, creating a step-off at the articular surface. Assessment & Plan (Jorge Richter MD; 07/18/2016 12:46 PM) Fracture of ankle, left, closed (S82.892A) Current Plans ORIF, ANKLE FRACTURE ([id number]) (left) Fracture of posterior malleolus of left tibia, closed, initial encounter ( S82.392A) Fracture of ankle, lateral malleolus, left, closed (S82.62XA) Note:: Assessment: Fracture of the left distal fibula and posterior malleolus as noted above. Plan: We discussed treatment options, and due to the separation and step-off of the articular surface through the posterior malleolus fracture, I recommended open reduction and internal fixation. She will be scheduled within the next couple days, and we will plan on performing her preoperative evaluation on the date of surgery. Signed by Jorge Richter MD (07/18/2016 12:47 PM) [facility]
== END 2016-07-21 10:13 | disposition home or self-care (01) ==
LOC: SDS 11:54 → IN 16:59
PROVIDERS: ADMIT Orthopaedic Surgery; ATTEND Orthopaedic Surgery
DX: S82.62XA Displaced fracture of lateral malleolus of left fibula, initial encounter for closed fracture (principal); W17.89XA Other fall from one level to another, initial encounter; J45.909 Unspecified asthma, uncomplicated; E03.9 Hypothyroidism, unspecified; Z79.899 Other long term (current) drug therapy
CPT/HCPCS: 76000; 96366; 96376; C1713; G0378; J0360; J0690; J1170; J1200; J2250; J2405; J2795; J7613